=== PATIENT | male | born 1945 | race Caucasian/White ===

== ENCOUNTER 2021-07-25 18:44 | Inpatient (IN) | payer MEDICARE ==
[~2021-07-25] VITALS: Ht 175.3 cm; Wt 93.0 kg
[~2021-07-25 18:44] MED LIST: Azor 5-20 MG T1 EACH; NEBI5 PO
[2021-07-25 19:14] LABS: BASOPHILS ABSOLUTE AUTO 0.05 K/mm3 (0.00-0.23); BASOPHILS PERCENT AUTO 0 % (0-2); EOSINOPHILS ABSOLUTE AUTO 0.02 K/mm3 (0.00-0.68); EOSINOPHILS PERCENT AUTO 0 % (0-6); Hematocrit 39.5 % (37.0-53.0); Hemoglobin 13.9 g/dL (13.5-17.5); IMMATURE GRAN ABSOLUTE AUTO 0.17 K/mm3 (0.00-0.10); IMMATURE GRAN PERCENT AUTO 1 % (0-1); LYMPHOCYTES ABSOLUTE AUTO 1.25 K/mm3 (0.84-5.20); LYMPHOCYTES PERCENT AUTO 8 % (21-46); MONOCYTES ABSOLUTE AUTO 1.66 K/mm3 (0.16-1.47); MONOCYTES PERCENT AUTO 10 % (4-13); Mean Corpuscular HGB 31.8 pg (26.0-34.0); Mean Corpuscular HGB Conc 35.2 g/dL (31.5-36.5); Mean Corpuscular Volume 90 fL (80-100); Mean Platelet Volume 9.9 fL (9.1-12.4); NEUTROPHILS ABSOLUTE AUTO 13.59 K/mm3 (1.96-9.15); NEUTROPHILS PERCENT AUTO 81 % (41-73); Platelet Count 305 K/mm3 (150-400); RDW Coefficient Variation 12.5 % (11.7-14.2); RDW Standard Deviation 41.7 fL (35.1-46.3); Red Blood Cell Count 4.37 M/mm3 (4.30-5.90); White Blood Cell Count 16.74 K/mm3 (4.00-11.30)
[2021-07-25 19:29] LABS: Alanine Aminotransfer (ALT/SGP 26 U/L (12-78); Albumin, Blood 2.9 g/dL (3.4-5.0); Albumin/Globulin Ratio 0.5 (0.8-1.8); Alk Phos 99 U/L (50-136); Anion Gap 8 mmol/L (6-16); Aspartate Aminotrans (AST/SGOT 30 U/L (12-37); Bilirubin, Total 0.4 mg/dL (0.1-1.0); Blood Urea Nitrogen 17 mg/dL (8-24); Bun/Creatinine Ratio 19.9 (12.0-20.0); CO2, Blood 28 mmol/L (21-32); Calcium, Blood 8.4 mg/dL (8.5-10.1); Chloride, Blood 96 mmol/L (98-108); Creatinine, Blood 0.85 mg/dL (0.60-1.20); Globulin, Blood 5.6 g/dL (2.2-4.0); Glomerular Filtration Rate >60 (60-); Glucose, Blood 157 mg/dL (70-99); Potassium, Blood 2.9 mmol/L (3.5-5.5); Sodium, Blood 132 mmol/L (136-145); Total Protein, Blood 8.5 g/dL (6.4-8.2)
[2021-07-25 20:44] LABS: C-REACTIVE PROTEIN, EXT RANGE >19.000 mg/dL (0.000-0.300)
[2021-07-26 00:45] LABS: CPK Creatine Kinase 303 U/L (39-308)
[2021-07-26 01:16] LABS: SARS-Cov-2 (COVID-19) PCR, MMC NEGATIVE (NEGATIVE)
[2021-07-26 01:36] LABS: CHOL/HDL RATIO 5.9; Cholesterol 153 mg/dL (50-200); HDL Cholesterol 26 mg/dL (>39); LDL/HDL RATIO 4.1; Low Density Lipoprotein Chol 106 mg/dL (0-110); Triglycerides 103 mg/dL (30-160); Very Low Density Lipoprot Chol 20 mg/dL (6-32)
[2021-07-26 04:11] LABS: Source, Urine Voided
[2021-07-26 04:13] LABS: Bilirubin, Urine Neg (Neg); Blood, Urine 3+ (Neg); Glucose Qualitative, Urine Neg (Neg); Ketones, Urine 3+ (Neg); Leukocyte Esterase, Urine Neg (Neg); Nitrite, Urine Neg (Neg); Protein, Urine 3+ (Neg); Specific Gravity, Urine 1.015 (1.003-1.022); Urobilinogen, Urine NORM (Normal)
[2021-07-26 04:23] LABS: Appearance, Urine Clear (Clear); Color, Urine Yellow (P-Yellow)
[2021-07-26 04:24] LABS: Bacteria Rare /hpf; Red Blood Cells, Urine 0-2 /hpf (0-2); Squamous Epithelial Cells Rare /hpf (Few); White Blood Cells, Urine Not Seen /hpf (0-5)
[2021-07-26 04:39] LABS: BASOPHILS ABSOLUTE AUTO 0.11 K/mm3 (0.00-0.23); BASOPHILS PERCENT AUTO 0 % (0-2); EOSINOPHILS ABSOLUTE AUTO 0.13 K/mm3 (0.00-0.68); EOSINOPHILS PERCENT AUTO 1 % (0-6); Hematocrit 37.1 % (37.0-53.0); Hemoglobin 12.8 g/dL (13.5-17.5); IMMATURE GRAN ABSOLUTE AUTO 0.33 K/mm3 (0.00-0.10); IMMATURE GRAN PERCENT AUTO 1 % (0-1); LYMPHOCYTES ABSOLUTE AUTO 1.47 K/mm3 (0.84-5.20); LYMPHOCYTES PERCENT AUTO 5 % (21-46); MONOCYTES ABSOLUTE AUTO 2.68 K/mm3 (0.16-1.47); MONOCYTES PERCENT AUTO 10 % (4-13); Mean Corpuscular HGB 31.8 pg (26.0-34.0); Mean Corpuscular HGB Conc 34.5 g/dL (31.5-36.5); Mean Corpuscular Volume 92 fL (80-100); Mean Platelet Volume 9.9 fL (9.1-12.4); NEUTROPHILS ABSOLUTE AUTO 23.29 K/mm3 (1.96-9.15); NEUTROPHILS PERCENT AUTO 83 % (41-73); Platelet Count 270 K/mm3 (150-400); RDW Coefficient Variation 12.7 % (11.7-14.2); RDW Standard Deviation 43.1 fL (35.1-46.3); Red Blood Cell Count 4.03 M/mm3 (4.30-5.90); White Blood Cell Count 28.01 K/mm3 (4.00-11.30)
[2021-07-26 05:00] LABS: International Normalized Ratio 1.16; Prothrombin Time Results 12.4 Sec (9.7-11.5)
[2021-07-26 05:02] LABS: Alanine Aminotransfer (ALT/SGP 26 U/L (12-78); Albumin, Blood 2.5 g/dL (3.4-5.0); Albumin/Globulin Ratio 0.5 (0.8-1.8); Alk Phos 96 U/L (50-136); Anion Gap 7 mmol/L (6-16); Aspartate Aminotrans (AST/SGOT 55 U/L (12-37); Bilirubin, Total 0.3 mg/dL (0.1-1.0); Blood Urea Nitrogen 16 mg/dL (8-24); Bun/Creatinine Ratio 17.2 (12.0-20.0); CO2, Blood 27 mmol/L (21-32); Chloride, Blood 99 mmol/L (98-108); Creatinine, Blood 0.93 mg/dL (0.60-1.20); Globulin, Blood 4.9 g/dL (2.2-4.0); Glomerular Filtration Rate >60 (60-); Glucose, Blood 154 mg/dL (70-99); Potassium, Blood 3.9 mmol/L (3.5-5.5); Sodium, Blood 133 mmol/L (136-145); Total Protein, Blood 7.4 g/dL (6.4-8.2)
--- NOTE | 2021-07-26 06:28 | NUR ---
PT ARRIVED TO FLOOR AT 0415. ORIENTED TO ROOM, BED, CALL LIGHT. PT IS A/OX3. PT REPORTS 1 WK AGO HE WAS LIFTING 50LBS AT WORK WHEN HE FELT PAIN TO HIS NECK WHICH THEN LEAD PAIN RADIATE TO HIS LEFT ARM. NOW C/O SOME NUMBNESS AND DIFFICULTY IN USING HIS LUE. [employer]: R>L. LUMBAR PUNCTURE ATTEMPTED IN ED BUT UNSUCESSFUL. VOIDS PER URINAL. PLAN: MRI AND LUMBAR PUNCTURE TODAY.
--- NOTE | 2021-07-26 07:30 | NUR ---
pt req pain meds for l neck 07/26 aslo reports his l arm is getting weaker can wiggle his fingers and lift up his hand reported having a puncture wound 8 days ago to that first finger that was deep from a tool fever at home 3 days cough noted from pt in room
--- NOTE | 2021-07-26 11:29 | NUR ---
pt just back from mri sched to go for ct guided lp puncture at 1200 today pt painful
--- NOTE | 2021-07-26 16:00 | NUR ---
dr brown by to see pt
--- NOTE | 2021-07-26 16:57 | NUR ---
called dr brown pt still in pain after each fent dose pt also had new neuro symptoms discussed with raj villalobos weakness to r arm and the hx of puncture wound 8 days ago and unable to void
--- NOTE | 2021-07-26 19:14 | NUR ---
dr brown called back placement to [facility] awaiting bed consult with neuro and hosp to admit
--- NOTE | 2021-07-26 21:22 | NUR ---
PATIENT IS BEING TRANSFERRED TO [facility]. AT 2029 TODAY WE RECIEVED THE ROOM NUMBER FOR THE PATIENT. 2106 IS WHEN TRANSPORT WAS ARRANGED FOR THE PATIENT. THEN 2122 IS WHEN THIS NURSE CALLED TO SHANITA FARLEY AT [facility] AND GAVE REPORT. PATIENT'S ROOM HAS HIS ITEMS IN BAGS. TRANSPORT SHOULD BE HERE IN 25 MINUTES OR SO TO TAKE HIM TO [facility]. PATIENT IS CURRENTLY LAYING IN BED. CALL LIGHT WITHIN REACH.
--- NOTE | 2021-07-26 21:37 | NUR ---
TRANSPORT CAME AND TOOK THE PATIENT AT 2136 TODAY.
== END 2021-07-26 21:38 | disposition short-term general hospital (02) | DRG 872 ==
LOC: ER 18:44 → ERHOLD 07-26 03:36 → SURS 07-26 03:36
PROVIDERS: Emergency Medicine; Internal Medicine; ADMIT Hospitalist
PROC: 00JU3ZZ Inspection of Spinal Canal, Percutaneous Approach (ICD-10-PCS; principal; 2021-07-26)
DX: A41.9 Sepsis, unspecified organism (principal); L02.11 Cutaneous abscess of neck; Z20.822 Contact with and (suspected) exposure to COVID-19; M25.512 Pain in left shoulder; R50.9 Fever, unspecified; J32.9 Chronic sinusitis, unspecified; I65.23 Occlusion and stenosis of bilateral carotid arteries; E87.6 Hypokalemia; M54.2 Cervicalgia; G89.29 Other chronic pain; I10 Essential (primary) hypertension; Z98.890 Other specified postprocedural states; Z79.899 Other long term (current) drug therapy
CPT/HCPCS: 36415; 70491; 71045; 72156; 80053; 80061; 81001; 82550; 83036; 83605; 83874; 84145; 85025; 85610; 85730; 86140; 87040; 87076; 93005; 93010; 93880; 96365; 96367; 96375; 99285-25; A9270; A9579; J0290; J0696; J2270; J2405; J2543; J2930; J3010; J3370; J3480; J7030; Q9967; U0004

== ENCOUNTER 2021-08-16 00:13 | Day surgery (SDC) | payer MEDICARE ==
[2021-08-17] MEDS ORDERED: CEFTRIAXONE2 G1 IV (15:12)
[2021-08-17] MEDS ORDERED: ACET325 PO (15:12)
[2021-08-17] MEDS ORDERED: AMLO5 PO (15:13)
[2021-08-17] MEDS ORDERED: AMIODARONE HCL400 M2 PO (15:13)
[2021-08-17] MEDS ORDERED: ATOR40TA PO (15:14)
[2021-08-17] MEDS ORDERED: ELIQUIS5 M2 PO (15:14)
[2021-08-17] MEDS ORDERED: Calcium Carbon500 MG PO (15:15)
[2021-08-17] MEDS ORDERED: Flexeril5 MG PO (15:16)
[2021-08-17] MEDS ORDERED: FURO40 PO (15:17)
[2021-08-17] MEDS ORDERED: METO25ER PO (15:17)
[2021-08-17] MEDS ORDERED: Hair, Skin & N1 EACH PO (15:18)
[2021-08-17] MEDS ORDERED: OXYC5 PO (15:18)
[2021-08-17] MEDS ORDERED: K-Dur20 MEQ PO (15:19)
[2021-08-17] MEDS ORDERED: TAMS.4ER PO (15:19)
== END 2021-08-16 14:49 | disposition home or self-care (01) ==
LOC: ATC 00:13
DX: G06.1 Intraspinal abscess and granuloma (principal); I11.0 Hypertensive heart disease with heart failure; I50.31 Acute diastolic (congestive) heart failure; E11.9 Type 2 diabetes mellitus without complications; N40.0 Benign prostatic hyperplasia without lower urinary tract symptoms; I48.0 Paroxysmal atrial fibrillation; Z79.4 Long term (current) use of insulin; Z79.01 Long term (current) use of anticoagulants
CPT/HCPCS: 96365; J0696

== ENCOUNTER 2021-08-18 02:08 | Day surgery (SDC) | payer MEDICARE ==
[~2021-08-18 02:08] MED LIST changes: +ACET325 PO; +AMIODARONE HCL400 M2 PO; +AMLO5 PO; +ATOR40TA PO; +CEFTRIAXONE2 G1 IV; +Calcium Carbon500 MG PO; +ELIQUIS5 M2 PO; +FURO40 PO; +Flexeril5 MG PO; +Hair, Skin & N1 EACH PO; +K-Dur20 MEQ PO; +METO25ER PO; +OXYC5 PO; +TAMS.4ER PO
[2021-08-18 14:51] LABS: BASOPHILS ABSOLUTE AUTO 0.06 K/mm3 (0.00-0.23); BASOPHILS PERCENT AUTO 1 % (0-2); EOSINOPHILS ABSOLUTE AUTO 0.61 K/mm3 (0.00-0.68); EOSINOPHILS PERCENT AUTO 9 % (0-6); Hematocrit 36.3 % (37.0-53.0); Hemoglobin 12.1 g/dL (13.5-17.5); IMMATURE GRAN ABSOLUTE AUTO 0.01 K/mm3 (0.00-0.10); IMMATURE GRAN PERCENT AUTO 0 % (0-1); LYMPHOCYTES ABSOLUTE AUTO 1.73 K/mm3 (0.84-5.20); LYMPHOCYTES PERCENT AUTO 25 % (21-46); MONOCYTES ABSOLUTE AUTO 0.75 K/mm3 (0.16-1.47); MONOCYTES PERCENT AUTO 11 % (4-13); Mean Corpuscular HGB 31.5 pg (26.0-34.0); Mean Corpuscular HGB Conc 33.3 g/dL (31.5-36.5); Mean Corpuscular Volume 95 fL (80-100); Mean Platelet Volume 9.5 fL (9.1-12.4); NEUTROPHILS ABSOLUTE AUTO 3.72 K/mm3 (1.96-9.15); NEUTROPHILS PERCENT AUTO 54 % (41-73); Platelet Count 297 K/mm3 (150-400); RDW Coefficient Variation 13.8 % (11.7-14.2); RDW Standard Deviation 47.7 fL (35.1-46.3); Red Blood Cell Count 3.84 M/mm3 (4.30-5.90); White Blood Cell Count 6.88 K/mm3 (4.00-11.30)
[2021-08-18 15:05] LABS: C-REACTIVE PROTEIN, EXT RANGE <0.290 mg/dL (0.000-0.300)
[2021-08-18 15:07] LABS: Alanine Aminotransfer (ALT/SGP 10 U/L (12-78); Albumin/Globulin Ratio 0.6 (0.8-1.8); Alk Phos 65 U/L (50-136); Anion Gap 6 mmol/L (6-16); Aspartate Aminotrans (AST/SGOT 16 U/L (12-37); Bilirubin, Total 0.3 mg/dL (0.1-1.0); Blood Urea Nitrogen 20 mg/dL (8-24); Bun/Creatinine Ratio 20.5 (12.0-20.0); CO2, Blood 24 mmol/L (21-32); Calcium, Blood 8.9 mg/dL (8.5-10.1); Chloride, Blood 109 mmol/L (98-108); Creatinine, Blood 0.98 mg/dL (0.60-1.20); Globulin, Blood 4.7 g/dL (2.2-4.0); Glomerular Filtration Rate >60 (60-); Glucose, Blood 97 mg/dL (70-99); Potassium, Blood 4.2 mmol/L (3.5-5.5); Sodium, Blood 139 mmol/L (136-145); Total Protein, Blood 7.7 g/dL (6.4-8.2)
== END 2021-08-18 15:43 | disposition home or self-care (01) ==
LOC: ATC 02:08
PROVIDERS: Internal Medicine Infectious Disease
DX: G06.2 Extradural and subdural abscess, unspecified (principal); I48.0 Paroxysmal atrial fibrillation; I11.0 Hypertensive heart disease with heart failure; I50.30 Unspecified diastolic (congestive) heart failure; N40.0 Benign prostatic hyperplasia without lower urinary tract symptoms; E11.9 Type 2 diabetes mellitus without complications; Z79.899 Other long term (current) drug therapy
CPT/HCPCS: 80053; 85025; 86140; 96365; J0696

== ENCOUNTER → 2022-05-27 | Outpatient (CLI) | payer OTHER ==
[2022-05-27 19:08] LABS: BASOPHILS ABSOLUTE AUTO 0.05 K/mm3 (0.00-0.23); BASOPHILS PERCENT AUTO 1 % (0-2); EOSINOPHILS ABSOLUTE AUTO 0.13 K/mm3 (0.00-0.68); EOSINOPHILS PERCENT AUTO 2 % (0-6); Hematocrit 33.5 % (37.0-53.0); Hemoglobin 10.9 g/dL (13.5-17.5); IMMATURE GRAN ABSOLUTE AUTO 0.03 K/mm3 (0.00-0.10); IMMATURE GRAN PERCENT AUTO 1 % (0-1); LYMPHOCYTES ABSOLUTE AUTO 1.38 K/mm3 (0.84-5.20); LYMPHOCYTES PERCENT AUTO 24 % (21-46); MONOCYTES ABSOLUTE AUTO 0.65 K/mm3 (0.16-1.47); MONOCYTES PERCENT AUTO 11 % (4-13); Mean Corpuscular HGB 35.9 pg (26.0-34.0); Mean Corpuscular HGB Conc 32.5 g/dL (31.5-36.5); Mean Corpuscular Volume 110 fL (80-100); Mean Platelet Volume 9.3 fL (9.1-12.4); NEUTROPHILS ABSOLUTE AUTO 3.45 K/mm3 (1.96-9.15); NEUTROPHILS PERCENT AUTO 61 % (41-73); Platelet Count 306 K/mm3 (150-400); RDW Coefficient Variation 15.7 % (11.7-14.2); RDW Standard Deviation 63.3 fL (35.1-46.3); Red Blood Cell Count 3.04 M/mm3 (4.30-5.90); White Blood Cell Count 5.69 K/mm3 (4.00-11.30)
[2022-05-27 20:24] LABS: Iron Serum 77 ug/dL (65-175); PSA, %Free 9.4 %; PSA, Free 0.101 ng/mL
== END | disposition home or self-care (01) ==
LOC: LAB 16:57 → LAB SHORT 16:57
PROVIDERS: Family Medicine
DX: N40.0 Benign prostatic hyperplasia without lower urinary tract symptoms (principal); E11.9 Type 2 diabetes mellitus without complications
CPT/HCPCS: 82607; 82746; 83036; 83540; 84153; 84154; 85025

== ENCOUNTER 2022-12-04 18:16 | Emergency (ER) | payer OTHER ==
[~2022-12-04] VITALS: Ht 175.3 cm; Wt 90.7 kg
== END 2022-12-04 20:22 | disposition home or self-care (01) ==
LOC: ER 18:16
DX: S43.085A Other dislocation of left shoulder joint, initial encounter (principal); W01.0XXA Fall on same level from slipping, tripping and stumbling without subsequent striking against object, initial encounter; I10 Essential (primary) hypertension; Z79.899 Other long term (current) drug therapy; Z79.01 Long term (current) use of anticoagulants
CPT/HCPCS: 73020; 73030; A9270

== ENCOUNTER → 2023-01-18 | Outpatient (CLI) | payer OTHER ==
[2023-01-19 13:11] LABS: Creatinine Urine 61.1 mg/dL (27.00-270.00); Microalbumin, Urine Quant. 13.2 mg/L (0.000-20.000); Protein, Urine Quantitative 10.3 mg/dL (0.0-11.9)
== END | disposition home or self-care (01) ==
LOC: LAB 09:00 → LAB SHORT 09:00
PROVIDERS: Internal Medicine Nephrology
DX: N18.30 Chronic kidney disease, stage 3 unspecified (principal); D63.1 Anemia in chronic kidney disease; N25.81 Secondary hyperparathyroidism of renal origin; E78.00 Pure hypercholesterolemia, unspecified; E55.9 Vitamin D deficiency, unspecified; D50.9 Iron deficiency anemia, unspecified; D51.8 Other vitamin B12 deficiency anemias; D52.8 Other folate deficiency anemias; R76.9 Abnormal immunological finding in serum, unspecified; R94.5 Abnormal results of liver function studies; R94.6 Abnormal results of thyroid function studies
CPT/HCPCS: 81050; 82043; 82570; 84156

== ENCOUNTER 2023-05-27 11:54 | Inpatient (IN) | payer OTHER ==
[~2023-05-27] VITALS: Ht 175.3 cm; Wt 76.2 kg
[2023-05-27 13:01] LABS: BASOPHILS ABSOLUTE AUTO 0.02 K/mm3 (0.00-0.23); BASOPHILS PERCENT AUTO 0 % (0-2); EOSINOPHILS ABSOLUTE AUTO 0.03 K/mm3 (0.00-0.68); EOSINOPHILS PERCENT AUTO 1 % (0-6); Hematocrit 34.8 % (37.0-53.0); Hemoglobin 11.9 g/dL (13.5-17.5); IMMATURE GRAN ABSOLUTE AUTO 0.01 K/mm3 (0.00-0.10); IMMATURE GRAN PERCENT AUTO 0 % (0-1); LYMPHOCYTES ABSOLUTE AUTO 1.59 K/mm3 (0.84-5.20); LYMPHOCYTES PERCENT AUTO 25 % (21-46); MONOCYTES ABSOLUTE AUTO 0.85 K/mm3 (0.16-1.47); MONOCYTES PERCENT AUTO 13 % (4-13); Mean Corpuscular HGB 36.6 pg (26.0-34.0); Mean Corpuscular HGB Conc 34.2 g/dL (31.5-36.5); Mean Corpuscular Volume 107 fL (80-100); Mean Platelet Volume 9.5 fL (9.1-12.4); NEUTROPHILS ABSOLUTE AUTO 3.84 K/mm3 (1.96-9.15); NEUTROPHILS PERCENT AUTO 61 % (41-73); Platelet Count 225 K/mm3 (150-400); RDW Coefficient Variation 13.7 % (11.7-14.2); RDW Standard Deviation 53.7 fL (35.1-46.3); Red Blood Cell Count 3.25 M/mm3 (4.30-5.90); White Blood Cell Count 6.34 K/mm3 (4.00-11.30)
[2023-05-27 13:17] LABS: Albumin, Blood 3.7 g/dL (3.4-5.0); Albumin/Globulin Ratio 0.9 (0.8-1.8); Bilirubin, Total 0.5 mg/dL (0.1-1.0); Bun/Creatinine Ratio 22.6 (12.0-20.0); Creatinine, Blood 3.14 mg/dL (0.60-1.20); Globulin, Blood 3.9 g/dL (2.2-4.0); Magnesium, Blood 2.5 mg/dL (1.6-2.4); Potassium, Blood 4.9 mmol/L (3.5-5.5); Total Protein, Blood 7.6 g/dL (6.4-8.2)
[2023-05-27] MEDS ORDERED: EUTHYROX50 MC1 PO (13:51)
[2023-05-27] MEDS ORDERED: HYDR1TAB94 PO (13:52)
[2023-05-27] MEDS ORDERED: VITAMIN D31000 UNI1 PO (13:52)
[2023-05-27 14:54] LABS: PCO2 Venous 22.3 mmHg (38-42); pH Blood Venous 7.44 (7.34-7.37)
[2023-05-27 14:55] LABS: Base Excess Venous -8.8 mmol/L; Bicarbonate Venous 18.8 mmol/L (24.0-30.0)
[2023-05-27 15:01] LABS: Source, Urine Clean Catch
[2023-05-27 15:08] LABS: Appearance, Urine Clear (Clear); Bilirubin, Urine Neg (Neg); Blood, Urine Neg (Neg); Color, Urine Yellow (P-Yellow); Glucose Qualitative, Urine Neg (Neg); Ketones, Urine Neg (Neg); Leukocyte Esterase, Urine Neg (Neg); Nitrite, Urine Neg (Neg); Protein, Urine Neg (Neg); Specific Gravity, Urine 1.015 (1.003-1.022); Urobilinogen, Urine NORM (Normal)
--- NOTE | 2023-05-27 16:37 | NUR ---
Pt. is in bed and welcomes my visit. Family are present. After the ED doc was done with Pt. this specialty cook began to facilitate a life review. Family members who were present excused themselves. Pt. became emotional as he verbalized that his brother had the same heart issue and . This was causing the Pt. anxiety. Considered matters of joey and belief. Pt. displayed reduced stress as he responded to the conversation. Pastoral care and prayer is given and rapport is estbalished. Pt. verbalized gratitude for the spiritual care visit.
[2023-05-27] MEDS ORDERED: PRED FORTE5 ML BOTHEYES (16:53)
[2023-05-27] MEDS ORDERED: PRED FORTE5 M1 (16:54)
[2023-05-27] MEDS ORDERED: FUROSEMIDE20 MG PO (16:55)
[2023-05-27] MEDS ORDERED: POTA8 PO (16:56)
[2023-05-27] MEDS ORDERED: BUMETANIDE2 M6 PO (16:56)
[2023-05-27] MEDS ORDERED: LISI5 PO (16:56)
--- NOTE | 2023-05-27 17:29 | NUR ---
PT CHART REVIEWED FOR ADMISSION
[2023-05-27] MEDS ORDERED: Floxin10 ML BOTHEYES (17:56)
[2023-05-27] MEDS ORDERED: KETO.5OPSO BOTHEYES (17:56)
[2023-05-27 18:28] VITALS: BP 113/69
--- NOTE | 2023-05-27 18:45 | NUR ---
ADMISSION SHIFT SUMMARY PATIENT ADMITTED FROM ED AFTER HAVING LOW BLOOD PRESSURES, AND GENERALIZED NOT FEELING WELL AT PCP OFFICE TODAY. PATIENT ALERT AND ORIENTED. FAMILY AT BEDSIDE. PATIENT DENIES ANY PAIN BUT HAS SOME STIFFNESS OF NECK. PATIENT STATES THIS IS A CHRONIC ISSUE. DENIES ANY SOB. TOLERATING REGULAR DIET. PATIENT STRAIGHT CATHED PRIOR TO TRANSFER TO MEDICAL FLOOR FOR RETENTION. PATIENT NOTED TO HAVE SKIN TEAR ON L HAND. FAMILY AND PATIENT STATE THAT IT IS FROM A FALL AT HOME. PATIENT NOTED TO HAVE SMALL SCATTERED BRUISING OF BILATERAL UPPER EXTREMETIES.
--- NOTE | 2023-05-27 18:50 | NUR ---
FIRE SAFETY EDUCATION FAMILY AND PATIENT EDUCATED ON FIRE SAFETY, OXYGEN USE AND CUMBUSTABLES. REVIEWED HOSPITAL STANDARD AND EXPECTATIONS. PATIENT AND FAMILY VERBALIZED UNDERSTANDING.
[2023-05-28] VITALS (8 sets, daily range): BP systolic 67–108; BP diastolic 42–76
[2023-05-28 04:58] LABS: BASOPHILS ABSOLUTE AUTO 0.02 K/mm3 (0.00-0.23); BASOPHILS PERCENT AUTO 0 % (0-2); EOSINOPHILS ABSOLUTE AUTO 0.07 K/mm3 (0.00-0.68); EOSINOPHILS PERCENT AUTO 1 % (0-6); Hematocrit 30.5 % (37.0-53.0); Hemoglobin 10.6 g/dL (13.5-17.5); IMMATURE GRAN ABSOLUTE AUTO 0.02 K/mm3 (0.00-0.10); IMMATURE GRAN PERCENT AUTO 0 % (0-1); LYMPHOCYTES ABSOLUTE AUTO 2.05 K/mm3 (0.84-5.20); LYMPHOCYTES PERCENT AUTO 31 % (21-46); MONOCYTES ABSOLUTE AUTO 0.75 K/mm3 (0.16-1.47); MONOCYTES PERCENT AUTO 11 % (4-13); Mean Corpuscular HGB 36.4 pg (26.0-34.0); Mean Corpuscular HGB Conc 34.8 g/dL (31.5-36.5); Mean Corpuscular Volume 105 fL (80-100); Mean Platelet Volume 9.6 fL (9.1-12.4); NEUTROPHILS PERCENT AUTO 57 % (41-73); Platelet Count 221 K/mm3 (150-400); RDW Coefficient Variation 13.3 % (11.7-14.2); RDW Standard Deviation 51.3 fL (35.1-46.3); Red Blood Cell Count 2.91 M/mm3 (4.30-5.90); White Blood Cell Count 6.71 K/mm3 (4.00-11.30)
[2023-05-28 05:22] LABS: Albumin, Blood 3.2 g/dL (3.4-5.0); Albumin/Globulin Ratio 0.9 (0.8-1.8); Bilirubin, Total 0.4 mg/dL (0.1-1.0); Bun/Creatinine Ratio 30.8 (12.0-20.0); Calcium, Blood 8.5 mg/dL (8.5-10.1); Creatinine, Blood 2.14 mg/dL (0.60-1.20); Globulin, Blood 3.7 g/dL (2.2-4.0); Potassium, Blood 4.4 mmol/L (3.5-5.5); Total Protein, Blood 6.9 g/dL (6.4-8.2)
--- NOTE | 2023-05-28 05:38 | NUR ---
SHIFT SUMMARY NO C/O PAIN OVERNIGHT. PRN TRAZADONE GIVEN WITH GOOD EFFECT. PT ABLE TO VOID A VERY SMALL AMOUNT, BUT STILL HAD POST VOID RESIDUALS, BLADDER SCAN AND ST CATH BY ANOTHER RN. BLADDER SCAN AT 0500 SHOWED 170. WILL PASS OFF TO DAY SHIFT RN TO CONTINUE TO MONITOR. Q1H FIRE SAFETY CHECKS COMPLETED WITH NO IGNITION SOURCES FOUND.
[2023-05-28 08:44] LABS: Thyroxine (T4) 3.5 ug/dL (4.5-12.1)
[2023-05-28 08:46] LABS: Thyroid Stimulating Hormone 36.3 uIU/mL (0.360-4.800)
--- NOTE | 2023-05-28 11:38 | NUR ---
Pt. is awake in a recliner and welcomes my visit. Pt. is pleasant. Pt. displays evidence of being confident and at peace. Pt. displayed evidence of almost no anxiety, and verbalized his expectation that he would be in the hospital for another day or two. Facilitated a life review of Pts. local involements and relationships. Rocky arrived so this environmental compliance inspector excused himself. Both the Pt. and granddaughter verbalized gratitude for the spiritual care visit and welcomed this environmental compliance inspector to return.
--- NOTE | 2023-05-28 17:58 | NUR ---
PT AOX4 AND COOPERATIVE OF CARE. PT WORKED WITH PHYSICAL THERAPY TODAY. THERAPY GOT PT UP TO CHAIR. AID TOOK BP OF PT AND GOT 67/42 AND RECHECKED THIS THREE TIMES. THIS SALES SERVICE REPRESENTATIVE WAS NOTIFIED AND PT WAS PLACED BACK IN BED. PT WAS NOT SYMTOMATIC AND ADRIÁN BP LAYING DOWN WAS 90/54 AND HIS LEG BP WAS 106/76HR HAS BEEN UPPER 60s-70s. DR WAGGONER WAS NOTIFIED AND BOLUS OF 500MLS WERE GIVEN AND COMPLETED BY 1355.PT DOING WELL AT THIS TIME. FAMILY AND PT HAVE BEEN EDUCATED ON IGNITION SOURCES AND RISKS TO INJURY DURING HOURLY ROUNDING. CALL LIGHT IS WITHIN REACH WILL CONTINUE TO MONITOR.
[2023-05-29 02:53] VITALS: BP 104/69
[2023-05-29 05:16] LABS: BASOPHILS ABSOLUTE AUTO 0.03 K/mm3 (0.00-0.23); BASOPHILS PERCENT AUTO 0 % (0-2); EOSINOPHILS PERCENT AUTO 1 % (0-6); Hematocrit 25.9 % (37.0-53.0); Hemoglobin 8.9 g/dL (13.5-17.5); IMMATURE GRAN ABSOLUTE AUTO 0.03 K/mm3 (0.00-0.10); IMMATURE GRAN PERCENT AUTO 0 % (0-1); LYMPHOCYTES ABSOLUTE AUTO 1.93 K/mm3 (0.84-5.20); LYMPHOCYTES PERCENT AUTO 28 % (21-46); MONOCYTES ABSOLUTE AUTO 0.81 K/mm3 (0.16-1.47); MONOCYTES PERCENT AUTO 12 % (4-13); Mean Corpuscular HGB Conc 34.4 g/dL (31.5-36.5); Mean Corpuscular Volume 105 fL (80-100); Mean Platelet Volume 9.7 fL (9.1-12.4); NEUTROPHILS ABSOLUTE AUTO 4.01 K/mm3 (1.96-9.15); NEUTROPHILS PERCENT AUTO 58 % (41-73); Platelet Count 202 K/mm3 (150-400); RDW Coefficient Variation 13.6 % (11.7-14.2); RDW Standard Deviation 52.7 fL (35.1-46.3); Red Blood Cell Count 2.47 M/mm3 (4.30-5.90); White Blood Cell Count 6.91 K/mm3 (4.00-11.30)
[2023-05-29 05:47] LABS: Bun/Creatinine Ratio 30.5 (12.0-20.0); Calcium, Blood 8.1 mg/dL (8.5-10.1); Creatinine, Blood 1.41 mg/dL (0.60-1.20); Magnesium, Blood 2.1 mg/dL (1.6-2.4); Phosphorus, Blood 2.3 mg/dL (2.5-4.9); Potassium, Blood 4.1 mmol/L (3.5-5.5)
--- NOTE | 2023-05-29 06:30 | NUR ---
SHIFT SUMMARY PT ABLE TO VOID ON OWN THIS SHIFT WITH ONLY SLIGHT RETENTION ISSUES. PRE-VOID BLADDER SCAN WAS 370CC AT THE END OF THIS SHIFT, HOWEVER PT VOIDED AFTER APPROXIMATELY 100CC. Q1H FIRE SAFETY CHECKS PERFORMED, NO IGNITION SOURCES FOUND.
[2023-05-29 07:35] VITALS: BP 99/60
--- NOTE | 2023-05-29 11:12 | NUR ---
SPOKE TO DR SIU AT BEDSIDE. SHE OKAYED FLOMAX 0.4 MG DAILY START NOW. PO
[2023-05-29 15:54] VITALS: BP 109/66
[2023-05-29 19:26] VITALS: BP 126/76
--- NOTE | 2023-05-29 19:57 | NUR ---
PT QUITE PLEASANT TODAY. BOLUS X2 LITERS STARTED. PT INDICATES DR STATES MAY GO HOME TOMORROW. STATES FEELS GOOD ABOUT THAT. NO DIZZINESS OR SYCOPAL TODAY. NO NEW CONCERNS NOTED. BED IN LOW POSITION, CALL LITE IN REACH, CALL APPROP
[2023-05-29 22:26] VITALS: BP 140/95
[2023-05-29 23:44] VITALS: BP 117/77
[2023-05-30] VITALS (9 sets, daily range): BP systolic 88–134; BP diastolic 54–74
[2023-05-30 03:19] LABS: BASOPHILS ABSOLUTE AUTO 0.03 K/mm3 (0.00-0.23); BASOPHILS PERCENT AUTO 0 % (0-2); EOSINOPHILS ABSOLUTE AUTO 0.08 K/mm3 (0.00-0.68); EOSINOPHILS PERCENT AUTO 1 % (0-6); Hematocrit 25.4 % (37.0-53.0); Hemoglobin 8.6 g/dL (13.5-17.5); IMMATURE GRAN ABSOLUTE AUTO 0.04 K/mm3 (0.00-0.10); IMMATURE GRAN PERCENT AUTO 1 % (0-1); LYMPHOCYTES ABSOLUTE AUTO 1.75 K/mm3 (0.84-5.20); LYMPHOCYTES PERCENT AUTO 25 % (21-46); MONOCYTES ABSOLUTE AUTO 0.76 K/mm3 (0.16-1.47); MONOCYTES PERCENT AUTO 11 % (4-13); Mean Corpuscular HGB 36.4 pg (26.0-34.0); Mean Corpuscular HGB Conc 33.9 g/dL (31.5-36.5); Mean Corpuscular Volume 108 fL (80-100); Mean Platelet Volume 9.3 fL (9.1-12.4); NEUTROPHILS ABSOLUTE AUTO 4.32 K/mm3 (1.96-9.15); NEUTROPHILS PERCENT AUTO 62 % (41-73); Platelet Count 177 K/mm3 (150-400); RDW Coefficient Variation 13.8 % (11.7-14.2); RDW Standard Deviation 54.4 fL (35.1-46.3); Red Blood Cell Count 2.36 M/mm3 (4.30-5.90); White Blood Cell Count 6.98 K/mm3 (4.00-11.30)
[2023-05-30 03:36] LABS: Bun/Creatinine Ratio 27.5 (12.0-20.0); Calcium, Blood 7.9 mg/dL (8.5-10.1); Creatinine, Blood 0.95 mg/dL (0.60-1.20); Potassium, Blood 4.3 mmol/L (3.5-5.5)
--- NOTE | 2023-05-30 03:48 | NUR ---
SHIFT SUMMARY NOC PT A/O X 4. PLEASANT AND COOPERATIVE WITH CARE. DURING SHIFT PT HAD C/O OF NEW ONSET CP THAT RADIATED DOWN LEFT ARM. WITH PAIN OF 8/10 AND ELEVATED BP. HOSPITALIST NOTIFIED AND EKG ORDERED. EKG WAS UNREMARKABLE COMPARED TO PREVIOUS 2 DAYS PRIOR. TROPONIN CAME BACK NEGATIVE. VSS. PT GIVEN TYLENOL AND FENTANYL AND PAIN SUBSIDED COMPLETELY. PT ON TELE RUNNING SINUS RHYTHM WITH 1DHB @ 79 BPM. PT STATUS CODE CHANGED FROM DNR TO DO NOT INTUBATE. MD GAVE VERBAL ORDER, BUT POLST STILL NEEDS MD SIGNATURE, WILL PASS ALONG TO DAY RN. PT DEONTE AND DAUGHTER STAYED NIGHT WITH PT. PT FINISHED 2L OF IV FLUID FOR FLUID DEPLETION. BP STABLE. PT SECOND TROPONIN CAME BACK CRITICAL 194, HOSPITALIST NOTIFIED AND REVIEWD PT CHART. ORDER FOR ONE TIME DOSE OF PLAVIX AND PHARMACY CONSULT FOR HEPARIN DRIP INTITIATED. PT REMAINS ASYMPTOMATIC. PT IS CURRENTLY RESTING WITH BED IN LOWEST POSITION, AND CALL LIGHT WITHIN REACH.
[2023-05-30 04:51] LABS: International Normalized Ratio 1.05
[2023-05-30 04:52] LABS: Anti-Xa UFH, PHA Monitoring >1.50 IU/mL
--- NOTE | 2023-05-30 12:03 | NUR ---
CARE NOTE CALL PLACED BY THIS RN TO DR. WAGGONER REGARDING PT BP, ORDERS TO ADMINISTER BLOOD TRANSFUSION. CALL PLACED AT 1200 APPROX.
[2023-05-30 17:21] LABS: Hematocrit 29.5 % (37.0-53.0); Hemoglobin 9.9 g/dL (13.5-17.5)
--- NOTE | 2023-05-30 17:33 | NUR ---
SHIFT SUMMARY PT IS ALERT AND ORIENTED X 4. SBP NOTED TO BE 88 THIS AFTERNOON BUT INCREASED POST PRBC TRANSFUSION WELL MIDODRINE ADMINISTRATION PER EMAR ORDERS, DR. WAGGONER MADE AWARE OF BP. PT DENIED FEELINGS OF CHEST PAIN/PRESSURE T/O SHIFT WELL FEELING SOB OR NAUSEOUS. SPO2 MAINTAINED >95% VIA ROOM AIR AND HR STABLE. ACTIVITY WAS LIMITED DUE TO ELEVATED TROPONINS, BEDSIDE URINAL UTILIZED TO VOID. FAMILY WAS AT BEDSIDE T/O SHIFT. WILL CONTINUE TO MONITOR AND REPORT TO ONCOMING RN. CALL LIGHT IS W/IN REACH.
[2023-05-31 04:15] VITALS: BP 97/66
[2023-05-31 04:33] LABS: BASOPHILS ABSOLUTE AUTO 0.02 K/mm3 (0.00-0.23); BASOPHILS PERCENT AUTO 0 % (0-2); EOSINOPHILS ABSOLUTE AUTO 0.12 K/mm3 (0.00-0.68); EOSINOPHILS PERCENT AUTO 2 % (0-6); Hematocrit 28.1 % (37.0-53.0); Hemoglobin 9.8 g/dL (13.5-17.5); IMMATURE GRAN ABSOLUTE AUTO 0.06 K/mm3 (0.00-0.10); IMMATURE GRAN PERCENT AUTO 1 % (0-1); LYMPHOCYTES ABSOLUTE AUTO 1.96 K/mm3 (0.84-5.20); LYMPHOCYTES PERCENT AUTO 27 % (21-46); MONOCYTES ABSOLUTE AUTO 0.88 K/mm3 (0.16-1.47); MONOCYTES PERCENT AUTO 12 % (4-13); Mean Corpuscular HGB 34.6 pg (26.0-34.0); Mean Corpuscular HGB Conc 34.9 g/dL (31.5-36.5); Mean Platelet Volume 9.6 fL (9.1-12.4); NEUTROPHILS ABSOLUTE AUTO 4.35 K/mm3 (1.96-9.15); NEUTROPHILS PERCENT AUTO 59 % (41-73); NRBC ABSOLUTE 0.02 K/mm3 (0.00-0.02); NRBC Auto 0.3 /100 WBC (0.0-0.2); Platelet Count 176 K/mm3 (150-400); RDW Coefficient Variation 19.9 % (11.7-14.2); RDW Standard Deviation 70.4 fL (35.1-46.3); Red Blood Cell Count 2.83 M/mm3 (4.30-5.90); White Blood Cell Count 7.39 K/mm3 (4.00-11.30)
[2023-05-31 04:36] LABS: Mean Corpuscular Volume 99 fL (80-100)
[2023-05-31 04:49] LABS: Albumin, Blood 2.6 g/dL (3.4-5.0); Albumin/Globulin Ratio 0.8 (0.8-1.8); Bilirubin, Total 0.3 mg/dL (0.1-1.0); Bun/Creatinine Ratio 20.5 (12.0-20.0); Calcium, Blood 8.7 mg/dL (8.5-10.1); Creatinine, Blood 0.93 mg/dL (0.60-1.20); Globulin, Blood 3.2 g/dL (2.2-4.0); Potassium, Blood 4.3 mmol/L (3.5-5.5); Total Protein, Blood 5.8 g/dL (6.4-8.2)
--- NOTE | 2023-05-31 05:38 | NUR ---
SHIFT SUMMARY NO NEW ISSUES NOTED. PT DENIES HAVING CX PAIN OR SOB. NO EVENTS REPORTED FROM MOTOR TESTER. PT HAS BEEN VOIDING VIA URINAL. PT HAD A SLEEP AID WITH PM MEDS AND HAS BEEN SLEEPING SOUNDLY THROUGHOUT SHIFT. PT IS CURRENTLY ASLEEP AND BREATHING EASY. CALL LIGHT IN REACH.
[2023-05-31 07:43] VITALS: BP 106/69
[2023-05-31] MEDS ORDERED: ASPI81CH PO (13:40)
[2023-05-31] MEDS ORDERED: CLOP75 PO (13:41)
[2023-05-31] MEDS ORDERED: Isosorbide Mono30 MG PO (13:42)
[2023-05-31 13:50] VITALS: BP 100/68
[2023-05-31] MEDS ORDERED: TAMS.4ER PO (13:50)
[2023-05-31] MEDS ORDERED: MIDO5 PO (13:50)
[2023-05-31] MEDS ORDERED: METO25ER PO (13:50)
== END 2023-05-31 14:36 | disposition home or self-care (01) | DRG 682 ==
LOC: ER 11:54 → MEDS 11:55 → ENPENDDIS 05-31 12:47 → MEDS 05-31 14:36
PROVIDERS: Internal Medicine; Physician Assistant; Student in an Organized Health Care Education/Training Program; ADMIT Hospitalist
PROC: 30233N1 Transfusion of Nonautologous Red Blood Cells into Peripheral Vein, Percutaneous Approach (ICD-10-PCS; principal; 2023-05-30)
DX: N17.9 Acute kidney failure, unspecified (principal); I21.4 Non-ST elevation (NSTEMI) myocardial infarction; I95.9 Hypotension, unspecified; E86.0 Dehydration; N18.9 Chronic kidney disease, unspecified; D63.1 Anemia in chronic kidney disease; Z66 Do not resuscitate; I12.9 Hypertensive chronic kidney disease with stage 1 through stage 4 chronic kidney disease, or unspecified chronic kidney disease; E11.22 Type 2 diabetes mellitus with diabetic chronic kidney disease; E78.5 Hyperlipidemia, unspecified; E03.9 Hypothyroidism, unspecified; G89.29 Other chronic pain; I48.0 Paroxysmal atrial fibrillation; I25.10 Atherosclerotic heart disease of native coronary artery without angina pectoris; M54.9 Dorsalgia, unspecified; I65.23 Occlusion and stenosis of bilateral carotid arteries; M54.2 Cervicalgia; I35.0 Nonrheumatic aortic (valve) stenosis; Z79.01 Long term (current) use of anticoagulants; Z79.899 Other long term (current) drug therapy; Z79.2 Long term (current) use of antibiotics; Z79.891 Long term (current) use of opiate analgesic; Z98.890 Other specified postprocedural states
CPT/HCPCS: 36415; 51701; 51798; 80048; 80053; 81003; 82803; 83735; 83880; 84100; 84436; 84443; 84484; 85014; 85018; 85025; 85520; 85610; 85730; 86850; 86900; 86901; 86923; 93005; 93010; 93308; 93321; 94762; 96374; 97110; 97116; 97162; 97166; 97530; 97535; 99285-25; A9270; G0378; J3010; J7030; J7040; P9016

== ENCOUNTER 2023-06-11 21:44 | Inpatient (IN) | payer OTHER ==
[~2023-06-11] VITALS: Ht 175.3 cm; Wt 82.2 kg
[~2023-06-11 21:44] MED LIST changes: +ASPI81CH PO; +BUMETANIDE2 M6 PO; +CLOP75 PO; +EUTHYROX50 MC1 PO; +FUROSEMIDE20 MG PO; +Floxin10 ML BOTHEYES; +HYDR1TAB94 PO; +Isosorbide Mono30 MG PO; +KETO.5OPSO BOTHEYES; +LISI5 PO; +MIDO5 PO; +POTA8 PO; +PRED FORTE5 M1; +PRED FORTE5 ML BOTHEYES; +VITAMIN D31000 UNI1 PO
[2023-06-11 22:05] LABS: Calcium, Ionized (POC) 1.18 mmol/L (1.10-1.46); Chloride (POC) 110 mmol/L (98-108); Glucose (ISTAT POC) 147 mg/dL (70-99); Hemoglobin (POC) 6.5 g/dL (13.5-17.5); Potassium (POC) 4.2 mmol/L (3.5-5.5); Sodium (POC) 141 mmol/L (135-148); Total CO2 (POC) 16 mmol/L (21-32)
[2023-06-11 22:14] LABS: BASOPHILS ABSOLUTE AUTO 0.03 K/mm3 (0.00-0.23); BASOPHILS PERCENT AUTO 0 % (0-2); EOSINOPHILS ABSOLUTE AUTO 0.08 K/mm3 (0.00-0.68); EOSINOPHILS PERCENT AUTO 1 % (0-6); Hematocrit 18.9 % (37.0-53.0); Hemoglobin 6.1 g/dL (13.5-17.5); IMMATURE GRAN ABSOLUTE AUTO 0.12 K/mm3 (0.00-0.10); IMMATURE GRAN PERCENT AUTO 1 % (0-1); LYMPHOCYTES ABSOLUTE AUTO 1.93 K/mm3 (0.84-5.20); LYMPHOCYTES PERCENT AUTO 20 % (21-46); MONOCYTES ABSOLUTE AUTO 1.01 K/mm3 (0.16-1.47); MONOCYTES PERCENT AUTO 10 % (4-13); Mean Corpuscular HGB 34.1 pg (26.0-34.0); Mean Corpuscular HGB Conc 32.3 g/dL (31.5-36.5); Mean Corpuscular Volume 106 fL (80-100); Mean Platelet Volume 9.8 fL (9.1-12.4); NEUTROPHILS ABSOLUTE AUTO 6.56 K/mm3 (1.96-9.15); NEUTROPHILS PERCENT AUTO 68 % (41-73); NRBC ABSOLUTE 0.17 K/mm3 (0.00-0.02); NRBC Auto 1.7 /100 WBC (0.0-0.2); Platelet Count 247 K/mm3 (150-400); RDW Coefficient Variation 19.3 % (11.7-14.2); RDW Standard Deviation 71.4 fL (35.1-46.3); Red Blood Cell Count 1.79 M/mm3 (4.30-5.90); White Blood Cell Count 9.73 K/mm3 (4.00-11.30)
[2023-06-11 22:28] LABS: Base Excess Venous -7.5 mmol/L; Bicarbonate Venous 18.8 mmol/L (24.0-30.0); PCO2 Venous 30.6 mmHg (38-42); pH Blood Venous 7.37 (7.34-7.37)
[2023-06-11 22:45] LABS: International Normalized Ratio 1.1; Prothrombin Time Results 11.5 Sec (9.7-11.5)
[2023-06-11 22:55] LABS: Albumin, Blood 3.1 g/dL (3.4-5.0); Bilirubin, Total 0.2 mg/dL (0.1-1.0); Bun/Creatinine Ratio 42.8 (12.0-20.0); Calcium, Blood 8.7 mg/dL (8.5-10.1); Creatinine, Blood 0.96 mg/dL (0.60-1.20); Globulin, Blood 3.2 g/dL (2.2-4.0); Magnesium, Blood 1.9 mg/dL (1.6-2.4); Potassium, Blood 4.3 mmol/L (3.5-5.5); Total Protein, Blood 6.3 g/dL (6.4-8.2)
[2023-06-12] VITALS (33 sets, daily range): BP systolic 82–115; BP diastolic 31–96
--- NOTE | 2023-06-12 01:20 | NUR ---
ADMIT ADMIT FROM ER VIA GURNEY. AWAKE AND ALERT. ORIENTED AND COOPERATIVE. REPOSITIONS SELF IN BED. RESPIRATIONS EVEN AND UNLABORED. C/O MILD SOB WHEN LAYING FLAT. O2 2L NC- SATS STABLE. MONITOR SHOWS SR WITH 1ST DEGREE AV BLOCK, RATE 70s. BP STABLE. SEE ADMIT ASSESSMENT FOR FULL ASSESSMENT.
[2023-06-12 06:01] LABS: Hematocrit 21.9 % (37.0-53.0); Hemoglobin 7.3 g/dL (13.5-17.5)
--- NOTE | 2023-06-12 06:13 | NUR ---
SHIFT SUMMARY NO ACUTE CHANGES. RESTING QUIETLY WHEN UNDISTURBED. ROUSES EASILY TO STIMULI. PT STATES HE IS FEELING BETTER THIS AM. PT IS TOLERATING HOB LOWERED WITHOUT SOB/DYSPNEA. RECEIVED 2 UNITS TOTAL OF PRBCs. NO SIGNS OF ACTIVE BLEEDING NOTED. MONITOR SHOWS NSR WITH 1ST DEGREE AV BLOCK, RATE 70s. BP STABLE. O2 2L NC- SATS STABLE. RESPIRATIONS EVEN AND UNLABORED. PROTONIX GTT INFUSING AT 8MG/HR (10ML/HR). NPO. VOIDING USING URINAL WITHOUT DIFFICULTY. PT AND FAMILY EDUCATED ON RISK RE: IGNITION SOURCES AND RISK OF INJURY WHILE OXYGEN IS IN USE. PATIENT DENIES SMOKING AND BOTH PATIENT AND FAMILY VERBALIZE UNDERSTANDING OF RISKS. WILL REPORT TO ONCOMING RN WHEN AVAILABLE.
[2023-06-12 06:14] LABS: Albumin, Blood 2.6 g/dL (3.4-5.0); Bilirubin, Total 0.3 mg/dL (0.1-1.0); Bun/Creatinine Ratio 41.3 (12.0-20.0); Calcium, Blood 8.1 mg/dL (8.5-10.1); Creatinine, Blood 0.94 mg/dL (0.60-1.20); Globulin, Blood 2.7 g/dL (2.2-4.0); Potassium, Blood 4.1 mmol/L (3.5-5.5); Total Protein, Blood 5.3 g/dL (6.4-8.2)
[2023-06-12 09:04] LABS: BASOPHILS ABSOLUTE AUTO 0.04 K/mm3 (0.00-0.23); BASOPHILS PERCENT AUTO 1 % (0-2); EOSINOPHILS ABSOLUTE AUTO 0.14 K/mm3 (0.00-0.68); EOSINOPHILS PERCENT AUTO 2 % (0-6); Hematocrit 22.7 % (37.0-53.0); Hemoglobin 7.6 g/dL (13.5-17.5); IMMATURE GRAN ABSOLUTE AUTO 0.07 K/mm3 (0.00-0.10); IMMATURE GRAN PERCENT AUTO 1 % (0-1); LYMPHOCYTES ABSOLUTE AUTO 1.99 K/mm3 (0.84-5.20); LYMPHOCYTES PERCENT AUTO 24 % (21-46); MONOCYTES ABSOLUTE AUTO 0.96 K/mm3 (0.16-1.47); MONOCYTES PERCENT AUTO 12 % (4-13); Mean Corpuscular HGB 32.1 pg (26.0-34.0); Mean Corpuscular HGB Conc 33.5 g/dL (31.5-36.5); Mean Platelet Volume 9.6 fL (9.1-12.4); NEUTROPHILS ABSOLUTE AUTO 4.94 K/mm3 (1.96-9.15); NEUTROPHILS PERCENT AUTO 61 % (41-73); NRBC ABSOLUTE 0.13 K/mm3 (0.00-0.02); NRBC Auto 1.6 /100 WBC (0.0-0.2); Platelet Count 196 K/mm3 (150-400); RDW Coefficient Variation 22.5 % (11.7-14.2); RDW Standard Deviation 73.2 fL (35.1-46.3); Red Blood Cell Count 2.37 M/mm3 (4.30-5.90); White Blood Cell Count 8.14 K/mm3 (4.00-11.30)
[2023-06-12 09:06] LABS: Mean Corpuscular Volume 96 fL (80-100)
--- NOTE | 2023-06-12 09:08 | NUR ---
0715 ASSUMED CARE. PATIENT IS ALERT AND ORIENTED SITTING IN BED WITH GRANDDAUGHTER AT BEDSIDE. PATIENT DENIES PAIN, EVEN WHEN ABD. PALPATED. PATIENT HAS PROTONIX DRIP GOING TO PIV. 2 PIV'S FLUSHED AND BOTH DRAW BLOOD BACK IN THEM WITH EASE. PATIENT VOIDED IN URINAL 200ML DUMPED. PATIENT ABLE TO SWALLOW PO MEDICATION BUT IS OTHERWISE NPO AWAITING TO HEAR FROM GI DR IF THERE IS A SCOPE TODAY OR NOT. FAMILY IS UNDER THE ASSUMTION THAT THE GI DOCTOR IS DOING A SCOPE TODAY. LOWER EXTREM. BILAT. ARE SWOLLEN 3+ BUT PALPABLE PULSES PRESENT. VS STABLE WITH NARROW PULSE PRESSURE ON BP HOWEVER PATIENT STATES THAT IS BASELINE. HE DID GET MIDODRINE THIS AM. PATIENT REPOSTIONED IN BED. NO ACUTE CONCERNS AT THIS TIME. LAB TO BE IN TO DRAW NEXT H+H AND TROP. I HIGH.
--- NOTE | 2023-06-12 12:19 | NUR ---
PATIENT HAS DAUGHTER AND GRAND DAUGHTER AT BEDSIDE WITH HIM TODAY. HE HAS BEEN UP OUT OF BED TO BSC BUT WITHOUT SUCCESS OF A BOWEL MOVEMENT. HE IS STILL ON THE PROTONIX DRIP IV. DR BOYD STOPPED IN SAW PATIENT ADN SPOKE WITH THEM ABOUT THE PLAN OF CARE. PATIENT WAS GIVEN A FULL LIQUID DIET... FOR NOW AND SCOPE WILL BE ON THURSDAY. PATIENT IS AFEBRILE WITH STABLE VS. H+H AND TROP. WILL BE CHECKED AT 1300 TODAY. WILL CONTINUE TO WITH CARE DIRECTED.
[2023-06-12 15:10] LABS: Hematocrit 23.8 % (37.0-53.0)
--- NOTE | 2023-06-12 18:01 | NUR ---
END OF SHIFT SUMMARY PATIENT HAS HAD A GOOD DAY. HE HAS NOT SHOWN ANY SIGNS OF BLEEDING AT THIS TIME HOWEVER HIS FLATULENCE TODAY DOES SMELL GI-TERE... PATIENT HAS BEEN UP TO C MULTIPLE TIMES WITHOUT ANY STOOLS TO BE PASSED. PATIENT HAS ALSO BEEN UP OUT OF BED TODAY S/P HIS BEDBATH AND LINEN CHANGES. PATIENT IS ON 2L NC LUNGS CLEAR T/O. PATIENT DOES HAVE A MURMUR WHEN ASCULTATING HEART TONES. PATIENT HAS ACTIVE BT'S THIS AFTERNOON AND NO PAIN UPON PALPATION. PATIENT BP LOW BUT IS AT BASELINE FOR PATIENT AND DOES GET MIDODRINE 3 X A DAY WHICH IS HELPFUL. PATIENT DOES NOT HAVE ANY DIZZINESS WHEN OUT OF BED OR STANDING. PULSE IS IN AND OUT OF 1 DEGREE BLOCK TODAY WITH PVC'S. HE HAS GOTTEN A FULL LIQUID DIET SINCE LUNCH AND EATS 100% OF IT. PLAN FOR EGD ON THURSDAY SINCE HE WAS ON PLAVIX AND ELOQUIS. PATIENTS TROPONIN STILL RISING AND DR BOYD IS AWARE. HE CONSULTED DR LEWIS TODAY BUT DR LEWIS STATED DR BAIN WILL SEE PATIENT TOMORROW. FAMILY HAS BEEN BY PATIENT SIDE ALL DAY AND GRAND DAUGHTER HAS REQUESTED TO SPEND THE NIGHT AGAIN, EDUCATOR FOR ICU HAS ALREADY APPROVED OF THIS ACTIVITY TONIGHT. WILL CONTINUE CARE DIRECTED AND GIVE REPORT TO NEXT SHIFT TO ALSO RESUME CARE. \ IGNITION RISK IS LOW. SINCE PATIENT DOES NOT SMOKE NOR DOES HIS FAMILY MEMBERS THAT HAVE BEEN AT PATIENTS SIDE. HE IS HOWEVER ON OXYGEN. HOURLY ROUNDING DONE WITH PATIENT TODAY.
--- NOTE | 2023-06-12 18:32 | NUR ---
UPDATE/ DIFFICULTY WITH BM PATIENT HAS TRIED TO HAVE A BM ALL DAY. HE IS FRUSTRATED TO OF NOT BEEN ABLE TO GO YET. HE WOULD LIKE A SUPPOSITORY OR ENEMA HOWEVER THE RISK OF HIM HAVING SOMETHING PUSHE INTO HIS BOWELS IS RISKY SINCE HE IS ALREADY GUIAC POSITIVE FOR AN UNKNOWN REASON. HE IS ON A FULL LIQUID AT THIS TIME. WILL FOLLOW UP HIS CONCERN.
[2023-06-12 21:09] LABS: Hemoglobin 7.7 g/dL (13.5-17.5)
--- NOTE | 2023-06-12 21:35 | NUR ---
CHEST PAIN PT C/O LEFT CHEST PAIN RADIATING INTO LEFT SHOULDER. DENIES C/O NAUSEA OR SOB. VSS. NO CHANGES NOTED ON MONITOR. DR. AVILEZ NOTIFIED AND ORDERS RECEIVED FOR FENTANYL 25MCG IV Q4H PRN.
--- NOTE | 2023-06-12 23:00 | NUR ---
ENEMA FLEETS ENEMA GIVEN AT PT'S REQUEST- NO RESPONSE. WARM WATER ENEMA GIVEN AT PT'S REQUEST- SMALL AMOUNT OF SOFT STOOL. DIGITAL DISIMPACTION PERFORMED AFTER THAT AT PT'S REQUEST- LARGE AMOUNT OF SMALL FORMED STOOLS DISIMPACTED. HEMORRHOIDS NOTED. PT STATES HE FEELS MUCH BETTER AFTERWARDS.
[2023-06-13] VITALS (19 sets, daily range): BP systolic 80–130; BP diastolic 59–87
--- NOTE | 2023-06-13 | NUR ---
URINARY RETENTION/STRAIGHT CATH PT BLADDER SCANNED EARLIER IN SHIFT WHEN HE STATED THAT HE COULDN'T VOID- TOTAL OF 491MLs AT THAT TIME. PT CONTINUES TO FEEL LIKE HE NEEDS TO VOID, BUT IS UNABLE. BLADDER SCAN AT THIS TIME SHOWS 553MLs URINE. PT STATES THAT HE IS "PRETTY UNCOMFORFTABLE". STRAIGHT CATH DONE AT THIS TIME- 550MLS YELLOW URINE.
[2023-06-13 02:25] LABS: Bun/Creatinine Ratio 37.9 (12.0-20.0); Calcium, Blood 8.3 mg/dL (8.5-10.1); Creatinine, Blood 0.9 mg/dL (0.60-1.20); Potassium, Blood 4.5 mmol/L (3.5-5.5)
[2023-06-13 02:28] LABS: BASOPHILS ABSOLUTE AUTO 0.03 K/mm3 (0.00-0.23); BASOPHILS PERCENT AUTO 0 % (0-2); EOSINOPHILS ABSOLUTE AUTO 0.09 K/mm3 (0.00-0.68); EOSINOPHILS PERCENT AUTO 1 % (0-6); Hematocrit 22.5 % (37.0-53.0); Hemoglobin 7.6 g/dL (13.5-17.5); IMMATURE GRAN ABSOLUTE AUTO 0.13 K/mm3 (0.00-0.10); IMMATURE GRAN PERCENT AUTO 1 % (0-1); LYMPHOCYTES ABSOLUTE AUTO 1.58 K/mm3 (0.84-5.20); LYMPHOCYTES PERCENT AUTO 15 % (21-46); MONOCYTES ABSOLUTE AUTO 1.03 K/mm3 (0.16-1.47); MONOCYTES PERCENT AUTO 10 % (4-13); Mean Corpuscular HGB 32.5 pg (26.0-34.0); Mean Corpuscular HGB Conc 33.8 g/dL (31.5-36.5); Mean Corpuscular Volume 96 fL (80-100); Mean Platelet Volume 9.8 fL (9.1-12.4); NEUTROPHILS ABSOLUTE AUTO 7.87 K/mm3 (1.96-9.15); NEUTROPHILS PERCENT AUTO 73 % (41-73); NRBC ABSOLUTE 0.17 K/mm3 (0.00-0.02); NRBC Auto 1.6 /100 WBC (0.0-0.2); Platelet Count 229 K/mm3 (150-400); RDW Coefficient Variation 22.7 % (11.7-14.2); RDW Standard Deviation 73.7 fL (35.1-46.3); Red Blood Cell Count 2.34 M/mm3 (4.30-5.90); White Blood Cell Count 10.73 K/mm3 (4.00-11.30)
--- NOTE | 2023-06-13 06:25 | NUR ---
SHIFT SUMMARY SLEEPING INTERMITTENTLY. ROUSES EASILY TO STIMULI. PT IS TOLERATING HOB LOWERED WITHOUT SOB/DYSPNEA. NO SIGNS OF ACTIVE BLEEDING NOTED. MONITOR SHOWS NSR WITH 1ST DEGREE AV BLOCK, RATE 70s. BP STABLE. MEDICATED WITH FENTANYL 25MCG IV X 4 DOSES DURING SHIFT FOR C/O L CHEST/SHOULDER PAIN WITH GOOD RELIEF. O2 2L NC- SATS STABLE. RESPIRATIONS EVEN AND UNLABORED. PROTONIX GTT INFUSING AT 8MG/HR (10ML/HR). TOLERATING FULL LIQUID DIET. DENIES NAUSEA BUT DOES C/O POOR APPETITE. REQUIRED STRAIGHT CATH X 1 DURING SHIFT FOR URINARY RETENTION. PT HAS VOIDED TWICE SINCE THEN. HOURLY ROUNDING DONE. PT AND FAMILY EDUCATED ON RISK RE: IGNITION SOURCES AND RISK OF INJURY WHILE OXYGEN IS IN USE. PATIENT DENIES SMOKING AND BOTH PATIENT AND FAMILY VERBALIZE UNDERSTANDING OF RISKS. WILL REPORT TO ONCOMING RN WHEN AVAILABLE.
--- NOTE | 2023-06-13 07:09 | NUR ---
ASSUMED CARE I ASSUMED CARE OF THIS PATIENT AT 0700. BEDSIDE REPORT RECEIVED FROM MARTINE JANSEN. PATIENT IS LYING IN BED WITH EYES CLOSED, BUT AWAKENS EASILY TO VERBAL STIMULI. PATIENT IS PLEASANT AND COOPERATIVE WITH STAFF. 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 BELONGINGS AND URINAL ON BEDSIDE TABLE AND CALL LIGHT IN REACH. PROTONIX GTT INF @ 10ML/HR.
--- NOTE | 2023-06-13 07:30 | NUR ---
IGNITION RISK AND EDUCATION PATIENT STATES THERE ARE NO IGNITION SOURCES IN BELONGINGS. EDUCATED ON NO INGITION SOURCES ARE TO BE UTILIZED ON [facility] AND FIRE SAFETY IN THE USE OF OXYGEN. PATIENT WAS RECEPTIVE TO EDUCATION.
--- NOTE | 2023-06-13 08:04 | NUR ---
DIET ORDERS PATIENT REQUESTED DIET BE CHANGED FROM FULL LIQUID TO SOLID FOOD. CALL MADE TO DR. ONEILL AND ORDERS RECEIVED TO CHANGE DIET ORDER. CARDIAC/HEART HEALTH 2G LOW SOIDUM DIET ORDERED.
[2023-06-13 09:23] LABS: Hematocrit 22.4 % (37.0-53.0); Hemoglobin 7.3 g/dL (13.5-17.5)
[2023-06-13 09:48] LABS: Percent Saturation 10.5 % (20.0-50.0)
--- NOTE | 2023-06-13 10:30 | NUR ---
DR. BAIN ROUNDING/PRBC DR. BAIN ROUNDED ON PATIENT AND AGREED WITH PCU STATUS AND ORDERED 1 UNIT PRBC TO BE INF.
--- NOTE | 2023-06-13 12:54 | NUR ---
FAMILY AT BEDSIDE. UPDATES ON PATIENT STATUS GIVEN TO DAUGHTER TAYA AND GRANDDAUGHTER CHERI.
--- NOTE | 2023-06-13 14:13 | NUR ---
ASSUMED CARE.... ASSUMED CARE OF PT AT 1400 REPORT FROM DAYANNA FARLEY. PT IS A&Ox4. VS STABLE. HE IS SITTING UP IN THE RECLINER CHAIR WITH FAMILY IN THE ROOM. PT DENIES ANY CHEST PAIN/PRESSURE AT THIS TIME. WILL CONTINUE TO MONITOR.
[2023-06-13 15:15] LABS: Hematocrit 25.2 % (37.0-53.0); Hemoglobin 8.4 g/dL (13.5-17.5)
--- NOTE | 2023-06-13 17:32 | NUR ---
SHIFT SUMMARY... NO ACUTE NEGATIVE CHANGES NOTED SINCE ASSUMING CARE. PT'S VS HAVE BEEN STABLE. PT IS A 1P ASSIST W/FWW BACK TO BED FROM THE RECLINER CHAIR AND TO THE BSC. PT'S VS STABLE. HE DENIES ANY CHEST PAIN/PRESSURE, N/V OR SOB. PT DENIES ABD PAIN. 1445 DR. ONEILL AT THE BEDSIDE TO ASSESS THE PT, PLAN IS FOR THE PT TO START CLEAR LIQUIDS TOMORROW AND START THE COLON PREP FOR HIS SCOPE ON THURSDAY. CALL LIGHT IN REACH WILL CONITNUE TO MONITOR UNTIL REPORT IS GIVEN TO ONCOMING RN.
--- NOTE | 2023-06-13 20:28 | NUR ---
ASSUMED CARE PT IS A&O X4; SPO2 >92% ON RA; MAP >65. PT DENIES CP, SOB, OR NAUSEA. PT'S DAUGHTER AT BEDSIDE. PROTONIX INFUSING PER ORDER.
[2023-06-14 03:51] LABS: BASOPHILS ABSOLUTE AUTO 0.03 K/mm3 (0.00-0.23); BASOPHILS PERCENT AUTO 0 % (0-2); EOSINOPHILS ABSOLUTE AUTO 0.13 K/mm3 (0.00-0.68); EOSINOPHILS PERCENT AUTO 2 % (0-6); Hematocrit 25.6 % (37.0-53.0); Hemoglobin 8.4 g/dL (13.5-17.5); IMMATURE GRAN ABSOLUTE AUTO 0.07 K/mm3 (0.00-0.10); IMMATURE GRAN PERCENT AUTO 1 % (0-1); LYMPHOCYTES PERCENT AUTO 21 % (21-46); MONOCYTES PERCENT AUTO 12 % (4-13); Mean Corpuscular HGB Conc 32.8 g/dL (31.5-36.5); Mean Corpuscular Volume 95 fL (80-100); Mean Platelet Volume 9.7 fL (9.1-12.4); NEUTROPHILS ABSOLUTE AUTO 4.89 K/mm3 (1.96-9.15); NEUTROPHILS PERCENT AUTO 64 % (41-73); NRBC ABSOLUTE 0.16 K/mm3 (0.00-0.02); NRBC Auto 2.1 /100 WBC (0.0-0.2); Platelet Count 226 K/mm3 (150-400); RDW Coefficient Variation 24.1 % (11.7-14.2); RDW Standard Deviation 74.6 fL (35.1-46.3); Red Blood Cell Count 2.71 M/mm3 (4.30-5.90); White Blood Cell Count 7.62 K/mm3 (4.00-11.30)
[2023-06-14 04:21] LABS: Bun/Creatinine Ratio 28.1 (12.0-20.0); Calcium, Blood 8.2 mg/dL (8.5-10.1); Creatinine, Blood 0.89 mg/dL (0.60-1.20); Potassium, Blood 4.4 mmol/L (3.5-5.5)
[2023-06-14 04:24] VITALS: BP 114/72
--- NOTE | 2023-06-14 05:22 | NUR ---
SHIFT SUMMARY PT RESTED QUIETLY/SLEPT T/O NIGHT. DENIES SOB, OR NAUSEA. UP TO COMMODE W/ PCT W/ NO ISSUES PER PCT. PT STATES HE FEELS "GOOD". C/O CP TWICE THIS SHIFT, STATES IT'S THE SAME IT HAS BEEN THE PAST COUPLE NIGHTS. NO ACUTE EVENTS OVERNIGHT.
--- NOTE | 2023-06-14 08:17 | NUR ---
AM NOTE.... ASSUMED CARE OF PT AT 0700. PT IS A&Ox4 AT THE TIME OF THIS ASSESSMENT. HE IS IN SR W/1ST DEGREE IN THE 60'S. BP IS STABLE WITH MAPS>65. MURMUR IS NOTED DURING THIS ASSESSMENT. HE IS ON RA WITH O2 SATS>95% L/S CLEAR T/O DIM IN THE BASES. BT PRESENT AND HYPERACTIVE, ABD HAS A MODERATE AMOUNT OF DISTENTION, IS FIRM AND NONTENDER TO PALPATION. PT WAS CHANGED TO A CLEAR LIQUID DIET WITH PLANS TO START COLON PREP AT 1700 WITH UPPER AND LOWER SCOPE TOMORROW AFTERNOON (06/15/23). PROTONIX DRIP RUNNING PER ORDERS. CALL LIGHT IN REACH WILL CONTINUE TO MONITOR.
[2023-06-14 08:23] VITALS: BP 108/71
--- NOTE | 2023-06-14 18:52 | NUR ---
SHIFT SUMMARY: KRISTA IS A&OX4. VSS, NO ACUTE EVENTS SINCE TRANSFERRING FROM ICU THIS AFTERNOON. HE IS TOLERATING THE CLEAR LIQUID DIET ORDERED WELL THE FIRST DOSE OF COLON PREP. HE IS A ONE TO TWO PERSON ASSIST WITH THE GAIT BELT AND FRONT WHEEL WALKER, UNSTEADY GAIT. PLAN IS FOR PT TO HAVE AN UPPER AND LOWER ENDOSCOPY TOMORROW WITH DR. ONEILL. PT IS TO BE LIMITED TO WATER AND ICE AFTER MIDNIGHT, THEN MADE NPO AT 1100 TOMORROW. HE IS LYING IN BED WITH THE CALL LIGHT IN REACH. WCTM UNTIL REPORT IS GIVEN TO SEWER CONNECTOR RN.
[2023-06-14 19:38] VITALS: BP 147/94
[2023-06-15 03:01] VITALS: BP 138/81
--- NOTE | 2023-06-15 05:05 | NUR ---
VICENTE CASTRO, PT RESTING IN BED, UP TO BR AND HAD BM EARLIER, PER COLLEGE BASKETBALL COACH REPORT PT HAD A LG BLACK LIQ STOOL. PT HAD GOTTEN UP MULTIPLE TIMES TO BR . PT NOW RESTIN IN BED. PT HAD CALLED FOR PAIN MED AND WAS MEDICATED. CALL LIGHT IN REACH. FIRE SAFETY REVIEWED.
[2023-06-15 05:36] LABS: BASOPHILS ABSOLUTE AUTO 0.03 K/mm3 (0.00-0.23); BASOPHILS PERCENT AUTO 0 % (0-2); EOSINOPHILS ABSOLUTE AUTO 0.16 K/mm3 (0.00-0.68); EOSINOPHILS PERCENT AUTO 2 % (0-6); Hematocrit 24.9 % (37.0-53.0); Hemoglobin 8.2 g/dL (13.5-17.5); IMMATURE GRAN ABSOLUTE AUTO 0.03 K/mm3 (0.00-0.10); IMMATURE GRAN PERCENT AUTO 0 % (0-1); LYMPHOCYTES ABSOLUTE AUTO 1.35 K/mm3 (0.84-5.20); LYMPHOCYTES PERCENT AUTO 18 % (21-46); MONOCYTES ABSOLUTE AUTO 0.97 K/mm3 (0.16-1.47); MONOCYTES PERCENT AUTO 13 % (4-13); Mean Corpuscular HGB 31.7 pg (26.0-34.0); Mean Corpuscular HGB Conc 32.9 g/dL (31.5-36.5); Mean Corpuscular Volume 96 fL (80-100); Mean Platelet Volume 9.9 fL (9.1-12.4); NEUTROPHILS ABSOLUTE AUTO 4.91 K/mm3 (1.96-9.15); NEUTROPHILS PERCENT AUTO 66 % (41-73); NRBC ABSOLUTE 0.04 K/mm3 (0.00-0.02); NRBC Auto 0.5 /100 WBC (0.0-0.2); Platelet Count 256 K/mm3 (150-400); RDW Coefficient Variation 23.8 % (11.7-14.2); RDW Standard Deviation 78.2 fL (35.1-46.3); Red Blood Cell Count 2.59 M/mm3 (4.30-5.90); White Blood Cell Count 7.45 K/mm3 (4.00-11.30)
[2023-06-15 06:01] LABS: Albumin, Blood 2.6 g/dL (3.4-5.0); Anion Gap 7 mmol/L (6-16); Blood Urea Nitrogen 15 mg/dL (8-24); Bun/Creatinine Ratio 17.4 (12.0-20.0); CO2, Blood 25 mmol/L (21-32); Calcium, Blood 8.2 mg/dL (8.5-10.1); Chloride, Blood 112 mmol/L (98-108); Creatinine, Blood 0.86 mg/dL (0.60-1.20); Glomerular Filtration Rate 89 (60-); Glucose, Blood 112 mg/dL (70-99); Phosphorus, Blood 2.8 mg/dL (2.5-4.9); Potassium, Blood 4.1 mmol/L (3.5-5.5); Sodium, Blood 144 mmol/L (136-145)
[2023-06-15 07:31] VITALS: BP 121/78
--- NOTE | 2023-06-15 08:00 | NUR ---
pt laying in bed watching tv, a/ox4, forgetful, pleasant and coopertive with care, follows commands well, denies pain at this time, lungs are clear t/o, hrr, poss murmur noted, 2+ edema noted to b/l le, cap refill<3sec, vs stable, afebrile, piv sites are clear and patent, infusing protonix gtt to right, voids without diff, skin c/w/d maew, uses walker to ambulate, shannan, swallows po meds without diff, call light in reach, will continue bowel prep this am then npo at 11:00 per orders.
[2023-06-15 14:39] VITALS: BP 123/80
--- NOTE | 2023-06-15 15:31 | NUR ---
Spiritual care visit conducted. Patient is lying in bed and alert. Patient explains about his medical issues, the of his spouse in 2014, his Amish Mormon belief system and family. Patient is pleasant and kind. He loves to talk about the closeness of his family and their many talents and achievements. 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 He is tearful when he talks about orthodoxy and how it was something that he and his late enjoyed doing together but after her passing it was to emotional for him to continue. His joey is still a deep part of his life, his thinking and his inspiration. I provide therapeutic listening and prayer. Patient responded well and voiced much appreciation for the the time and prayer. I will continue to remain available to patient and family.
[2023-06-15 18:05] VITALS: BP 123/78
--- NOTE | 2023-06-15 18:50 | NUR ---
pt has had his bowel prep this am, and produced a good amount of liquid stool, started off black and is more clear with sediment per pt, asked him not to flush so we can see, notified Dr. Doss office of him not being clear this afternoon, he saw pt and placed new orders, miralax given this evening, and another prep will be given tomorrow. pt tolerating well, he did have one bout of chest pain this afternoon that he states is muscular, fentanyl given with good relief, no further changes this shift. call light in reach.
[2023-06-15 19:51] VITALS: BP 144/86
[2023-06-16] VITALS (7 sets, daily range): BP systolic 105–125; BP diastolic 56–92
--- NOTE | 2023-06-16 06:04 | NUR ---
SHIFT SUMMERY. PT HAD SEVERAL BMS LIGHT BROWN WITH SOME SEDIMENT. PT ALERT AND ORIENTED. WHEN PROTONIX BAG REPLACED PT SATED HE HAD FINALY SLEPT FOR A FEW HRS. PT BACK TO SLEEP . FIRE SAFETY REVIEW DONE. CALL LIGHT IN REACH.
--- NOTE | 2023-06-16 08:00 | NUR ---
pt laying in bed awake a/ox4, pleasant and cooperative with care, follows commands well, states he had a pretty good night, stool is yellow liquid with some brown sediment, lungs are clear t/o, resp even and unlabored, no cough noted, hrr, murmur noted, 2+ edema noted to b/l le, ppp+2, cap refill <3sec, vs stable, afebrile, iv sites are clear and patent, btx4, abd flat soft nontender, voids without diff, skin has pink coccyx otherwise c/w/d, maew, ambulates with walker, gait steady, shannan, drinking his prep this am. call light in reach.
--- NOTE | 2023-06-16 10:21 | NUR ---
pt having yellow stool with some brown sediment, notified Dr. Coburn, he ordered the second bottle of prep be given, this was done, will notify him when he is finished drinking it. call light in reach.
--- NOTE | 2023-06-16 13:11 | NUR ---
06/16/23 [address] MILLER MONITOR INTACT WITH CONTINUOUS PULSE OXIMETRY, CONTINUOUS END TITAL CO2, AND INTERMITTENT BLOOD PRESSURE. AND EKG.
--- NOTE | 2023-06-16 14:32 | NUR ---
pt returned to room awake states he feels good, maybe a bit fuzzy, v.s. stable, family in room, will monitor, and check swallow, call light in reach.
--- NOTE | 2023-06-16 18:45 | NUR ---
pt has been doing well, no complaints, came in and spoke to family about plan for angio scheduled for , no further changes this shift. call light in reach.
[2023-06-17 04:49] VITALS: BP 108/68
--- NOTE | 2023-06-17 05:32 | NUR ---
SURVEY RESEARCH MANAGER SUMMARY NO ACUTE CHANGES OVERNIGHT. A&OX4. PATIENT EFFECTIVELY COMMUNICATES NEEDS. VSS. RR EVEN AND UNLABORED ON RA. PATIENT IS A STAND-BY ASSIST WITH A FWW. FENTANYL ADMINISTERED PER EMAR FOR CHEST PAIN, WHICH PATIENT REPORTED EFFECTIVE. NO OTHER SIGNS OR SYMPTOMS. BED LOW AND LOCKED. CALL LIGHT WITHIN REACH. THIS RN WILL CONTINUE TO MONITOR.
[2023-06-17 08:05] VITALS: BP 119/72
[2023-06-17] MEDS ORDERED: PANT20 PO (11:24)
--- NOTE | 2023-06-17 12:45 | NUR ---
DISCHARGE INSTRUCTIONS COMPLETED AND DISCUSSED WITH PT AND GRANDDAUGHTER. PT DENIES HAVING AN SOURCE OF IGNITION IN ROOM. TO CURB VIA W/C.
== END 2023-06-17 12:09 | disposition home or self-care (01) | DRG 377 ==
LOC: ER 21:44 → ICUE 21:45 → MEDS 06-12 13:47 → ICUE 06-12 13:47 → MEDS 06-14 14:32 → ENPENDDIS 06-17 11:17 → MEDS 06-17 12:09
PROVIDERS: Family Medicine; Internal Medicine; Internal Medicine Gastroenterology; Student in an Organized Health Care Education/Training Program; ADMIT Internal Medicine
PROC: 30233N1 Transfusion of Nonautologous Red Blood Cells into Peripheral Vein, Percutaneous Approach (ICD-10-PCS; principal; 2023-06-11)
PROC: 30233N1 Transfusion of Nonautologous Red Blood Cells into Peripheral Vein, Percutaneous Approach (ICD-10-PCS; 2023-06-13)
PROC: 0DBL8ZZ Excision of Transverse Colon, Via Natural or Artificial Opening Endoscopic (ICD-10-PCS; 2023-06-16)
PROC: 0DBK8ZZ Excision of Ascending Colon, Via Natural or Artificial Opening Endoscopic (ICD-10-PCS; 2023-06-16 12:30)
DX: K57.31 Diverticulosis of large intestine without perforation or abscess with bleeding (principal); I21.A1 Myocardial infarction type 2; K22.2 Esophageal obstruction; K92.1 Melena; K63.5 Polyp of colon; D63.1 Anemia in chronic kidney disease; R94.31 Abnormal electrocardiogram [ECG] [EKG]; I20.9 Angina pectoris, unspecified; I35.0 Nonrheumatic aortic (valve) stenosis; E78.5 Hyperlipidemia, unspecified; E11.22 Type 2 diabetes mellitus with diabetic chronic kidney disease; I12.9 Hypertensive chronic kidney disease with stage 1 through stage 4 chronic kidney disease, or unspecified chronic kidney disease; K64.4 Residual hemorrhoidal skin tags; N18.9 Chronic kidney disease, unspecified; E03.9 Hypothyroidism, unspecified; G89.29 Other chronic pain; M54.2 Cervicalgia; I44.0 Atrioventricular block, first degree; M54.10 Radiculopathy, site unspecified; I48.0 Paroxysmal atrial fibrillation; T45.515A Adverse effect of anticoagulants, initial encounter; I25.2 Old myocardial infarction; Z79.01 Long term (current) use of anticoagulants; Z79.890 Hormone replacement therapy; Z79.899 Other long term (current) drug therapy; Z79.2 Long term (current) use of antibiotics; Z98.890 Other specified postprocedural states; Z79.02 Long term (current) use of antithrombotics/antiplatelets
CPT/HCPCS: 36415; 36430; 51701; 71045; 80047; 80048; 80053; 80069; 82272; 82607; 82728; 82746; 82803; 82947; 83540; 83550; 83735; 83880; 84484; 85014; 85018; 85025; 85610; 86850; 86900; 86901; 86923; 88305; 93005; 93010; 94762; 96374; 96376; 99285-25; A9270; C1751; C9113; G0378; J2001; J2371; J2704; J3010; J7030; J7050; J7120; P9016

== ENCOUNTER 2023-07-09 08:57 | Day surgery (SDC) | payer OTHER ==
[2023-07-09] VITALS (8 sets, daily range): BP systolic 148–160; BP diastolic 86–103
[~2023-07-09] VITALS: Ht 175.3 cm; Wt 83.0 kg
[~2023-07-09 08:57] MED LIST changes: +PANT20 PO
--- NOTE | 2023-07-09 09:37 | NUR ---
PT A&Ox4. DENIES ANY SYMPTOMS AT THIS TIME. PT SITTING UP IN BED.
--- NOTE | 2023-07-09 11:25 | NUR ---
PT BACK TO RECOVERY ROOM VIA RECLINER AFTER PROCEDURE. AWAKE AND ALERT, TR BAND IN PLACE ON RIGHT RADIAL AITE. NO BLEEDING OR SWELLING NOTED.
--- NOTE | 2023-07-09 12:30 | NUR ---
RIGHT RADIAL SITE TR BAND HAS BEEN FULLY DEFLATED. NO BLEEDING OR SWELLING NOTED AT SITE. FAMILY REMAINS AT BEDSIDE VISITING WITH PATIENT. VSS, CALL LIGHT IN REACH. PT EATING LUNCH, DENIES NEEDS.
--- NOTE | 2023-07-09 13:05 | NUR ---
IV DC'D, CATH INTACT. PT AND DAUGHTER VERBALIZED UNDERSTANDING OF DISCHARGE INSTRUCTIONS AND FOLLOW UP INFO. PT OUT TO CAR VIA WHEELCHAIR. RIGHT RADIAL SITE REMAINS SOFT AND NON-TENDER. NO BLEEDING OR SWELLING NOTED.
== END 2023-07-09 11:00 | disposition home or self-care (01) ==
LOC: MHTC 08:57
DX: I35.0 Nonrheumatic aortic (valve) stenosis (principal); I25.10 Atherosclerotic heart disease of native coronary artery without angina pectoris; I48.0 Paroxysmal atrial fibrillation; E78.5 Hyperlipidemia, unspecified; N18.9 Chronic kidney disease, unspecified; E11.22 Type 2 diabetes mellitus with diabetic chronic kidney disease; D63.1 Anemia in chronic kidney disease
CPT/HCPCS: 76937; 93454; 99152; A9270; C1769; C1887; C1894; J1644; J2250; J3010; J7030; J7050; Q9967

== ENCOUNTER 2023-10-27 09:02 | Day surgery (SDC) | payer OTHER ==
[~2023-10-27] VITALS: Ht 175.3 cm; Wt 91.8 kg
[~2023-10-27 09:02] MED LIST changes: -EUTHYROX50 MC1 PO; +FURO20 PO; +LISI5; +SYNTHROID50 MC1 PO
[2023-10-27] MEDS ORDERED: PLAVIX75 MG PO (09:18)
[2023-10-27] MEDS ORDERED: PANTOPRAZOLE SO40 M2 PO (09:20)
[2023-10-27] MEDS ORDERED: ASPIR 8181 M1 PO (09:20)
[2023-10-27] MEDS ORDERED: GLUCHON PO (09:21)
--- NOTE | 2023-10-27 09:28 | NUR ---
10/27/23 0928 Jonathon Zamora CALL LIGHT WITHIN REACH. TETRACAINE IN RIGHT EYE AT 0921 AND PLEDGETT IN AT 0922
[2023-10-27 10:27] VITALS: BP 150/97
--- NOTE | 2023-10-27 10:40 | NUR ---
10/27/23 1040 Monty Castillo IV REMOVED INTACT. SITE WNL.
[2023-11-02] MEDS ORDERED: Acetaminophen650 M1 PO (11:08)
[2023-11-02] MEDS ORDERED: FERSU300 PO (11:11)
[2023-11-02] MEDS ORDERED: ACULAR5 ML (11:14)
[2023-11-02] MEDS ORDERED: MIDODRINE HCL10 M1 PO (11:17)
[2023-11-02] MEDS ORDERED: OFLOXACIN5 M9 (11:18)
[2023-11-02] MEDS ORDERED: PRED FORTE5 M1 (11:23)
[2023-11-02] MEDS ORDERED: TAMS.4ER PO (11:24)
== END 2023-10-27 10:40 | disposition home or self-care (01) ==
LOC: ORSCSDS 09:02
PROVIDERS: Student in an Organized Health Care Education/Training Program
PROC: 08RJ3JZ Replacement of Right Lens with Synthetic Substitute, Percutaneous Approach (ICD-10-PCS; principal; 2023-10-27 10:30)
DX: H25.13 Age-related nuclear cataract, bilateral (principal); I25.10 Atherosclerotic heart disease of native coronary artery without angina pectoris; E78.5 Hyperlipidemia, unspecified; N18.31 Chronic kidney disease, stage 3a; G47.33 Obstructive sleep apnea (adult) (pediatric); K21.9 Gastro-esophageal reflux disease without esophagitis; E03.9 Hypothyroidism, unspecified; I48.91 Unspecified atrial fibrillation; Z79.01 Long term (current) use of anticoagulants; Z79.899 Other long term (current) drug therapy
CPT/HCPCS: J2250; J3010; J7040; V2632

== ENCOUNTER 2023-11-13 08:53 | Day surgery (SDC) | payer OTHER ==
[~2023-11-13] VITALS: Ht 175.3 cm; Wt 93.7 kg
[~2023-11-13 08:53] MED LIST changes: +ACULAR5 ML; +ASPIR 8181 M1 PO; +Acetaminophen650 M1 PO; +FERSU300 PO; +GLUCHON PO; +MIDODRINE HCL10 M1 PO; +OFLOXACIN5 M9; +PANTOPRAZOLE SO40 M2 PO; +PLAVIX75 MG PO
--- NOTE | 2023-11-13 09:22 | NUR ---
11/13/23 0922 Laine Dominique PROPARACAINE PLACED IN LEFT EYE AT 0913. PLEDGET PLACED IN LEFT EYE AT 0914 PT TOLERATED WELL
[2023-11-13 10:10] VITALS: BP 143/72
== END 2023-11-13 10:33 | disposition home or self-care (01) ==
LOC: ORSCSDS 08:53
PROVIDERS: Student in an Organized Health Care Education/Training Program
PROC: 08RK3JZ Replacement of Left Lens with Synthetic Substitute, Percutaneous Approach (ICD-10-PCS; principal; 2023-11-13 10:00)
DX: H25.12 Age-related nuclear cataract, left eye (principal); Z96.1 Presence of intraocular lens; I12.9 Hypertensive chronic kidney disease with stage 1 through stage 4 chronic kidney disease, or unspecified chronic kidney disease; N18.31 Chronic kidney disease, stage 3a; Z79.82 Long term (current) use of aspirin; Z79.02 Long term (current) use of antithrombotics/antiplatelets; Z79.899 Other long term (current) drug therapy
CPT/HCPCS: 82947; J2250; J3010; J7040; V2632

== ENCOUNTER → 2024-04-27 | Outpatient (CLI) | payer OTHER ==
[2024-04-27 19:31] LABS: BASOPHILS ABSOLUTE AUTO 0.03 K/mm3 (0.00-0.23); BASOPHILS PERCENT AUTO 1 % (0-2); EOSINOPHILS ABSOLUTE AUTO 0.13 K/mm3 (0.00-0.68); EOSINOPHILS PERCENT AUTO 2 % (0-6); Hematocrit 41.1 % (37.0-53.0); IMMATURE GRAN ABSOLUTE AUTO 0.01 K/mm3 (0.00-0.10); IMMATURE GRAN PERCENT AUTO 0 % (0-1); LYMPHOCYTES PERCENT AUTO 31 % (21-46); MONOCYTES ABSOLUTE AUTO 0.77 K/mm3 (0.16-1.47); MONOCYTES PERCENT AUTO 13 % (4-13); Mean Corpuscular HGB Conc 34.1 g/dL (31.5-36.5); Mean Corpuscular Volume 100 fL (80-100); Mean Platelet Volume 10.3 fL (9.1-12.4); NEUTROPHILS ABSOLUTE AUTO 3.06 K/mm3 (1.96-9.15); NEUTROPHILS PERCENT AUTO 53 % (41-73); Platelet Count 295 K/mm3 (150-400); RDW Coefficient Variation 13.2 % (11.7-14.2); RDW Standard Deviation 48.5 fL (35.1-46.3); Red Blood Cell Count 4.12 M/mm3 (4.30-5.90)
[2024-04-27 19:46] LABS: Alanine Aminotransfer (ALT/SGP 34 U/L (12-78); Albumin, Blood 3.8 g/dL (3.4-5.0); Albumin/Globulin Ratio 0.9 (0.8-1.8); Alk Phos 69 U/L (50-136); Anion Gap 10 mmol/L (3-11); Aspartate Aminotrans (AST/SGOT 28 U/L (12-37); Bilirubin, Total 0.4 mg/dL (0.1-1.0); Blood Urea Nitrogen 18 mg/dL (8-24); Bun/Creatinine Ratio 17.5 (12.0-20.0); CO2, Blood 24 mmol/L (21-32); Calcium, Blood 8.9 mg/dL (8.5-10.1); Chloride, Blood 110 mmol/L (98-108); Cholesterol 134 mg/dL (50-200); Creatinine, Blood 1.03 mg/dL (0.60-1.20); Ferritin, Serum 364 ng/mL (26-388); Globulin, Blood 4.2 g/dL (2.2-4.0); Glomerular Filtration Rate 74 (60-); Glucose, Blood 131 mg/dL (70-99); HDL Cholesterol 27 mg/dL (>39); Iron Serum 53 ug/dL (65-175); LDL/HDL RATIO 2.4; Low Density Lipoprotein Chol 66 mg/dL (0-110); Percent Saturation 19.2 % (20.0-50.0); Sodium, Blood 140 mmol/L (136-145); Total Iron Binding Capacity 276 ug/dL (250-450); Triglycerides 207 mg/dL (30-160); Very Low Density Lipoprot Chol 41 mg/dL (6-32)
== END | disposition home or self-care (01) ==
LOC: LAB SHORT 17:56 → LAB 17:56
PROVIDERS: Family Medicine
DX: Z13.220 Encounter for screening for lipoid disorders (principal); E11.9 Type 2 diabetes mellitus without complications; E03.9 Hypothyroidism, unspecified; I50.9 Heart failure, unspecified; D63.8 Anemia in other chronic diseases classified elsewhere; Z87.19 Personal history of other diseases of the digestive system
CPT/HCPCS: 80053; 80061; 82728; 83540; 83550; 83880; 84443; 85025